=== PATIENT | female | born 1990 | race Caucasian/White ===

== ENCOUNTER 2018-02-02 18:28 | Emergency (ER) | payer OTHER ==
[~2018-02-02] VITALS: Ht 160 cm; Wt 103.4 kg
[~2018-02-02 18:28] MED LIST: AUGMENTIN 500-1 EACH PO; FAMOTIDINE20 MG PO; IRON325 M1 PO; KEFLEX500 MG PO; NAPROSYN500 MG PO; OMEPRAZOLE20 MG PO; ONDANSETRON HCL4 MG PO; ORTHO TRI-CYCL1 EACH PO; PERCOCET 5-3251 EACH PO; PRENATAL VITAM1 EACH PO; PRENATAL-FOLIC1 EACH PO; PROMETHAZINE HC25 M1 PO; PROVENTIL HFA6.7 GM INH; STOOL SOFTENER50 MG PO; VITAMIN C500 M1 PO; VITAMIN D50000 UNI1 PO; ZOFRAN ODT4 MG SL; ZOFRAN4 MG PO; ZOLOFT50 MG PO
[2018-02-02] MEDS ORDERED: COL-RITE100 MG PO (18:53)
[2018-02-02] MEDS ORDERED: RA P-COL RITE1 EACH PO (18:54)
[2018-02-02] MEDS ORDERED: TYLENOL WITH C1 EACH PO (19:00)
[2018-02-02] MEDS ORDERED: GOLYTELY SOLU4000 ML PO (19:05)
== END 2018-02-02 19:21 | disposition home or self-care (01) ==
LOC: ED 18:28
DX: K59.00 Constipation, unspecified (principal); Z90.710 Acquired absence of both cervix and uterus; Z79.899 Other long term (current) drug therapy
CPT/HCPCS: 99283

== ENCOUNTER 2020-06-23 06:30 | Day surgery (SDC) | payer OTHER ==
[~2020-06-23] VITALS: Ht 160 cm; Wt 104.3 kg
[~2020-06-23 06:30] MED LIST changes: +COL-RITE100 MG PO; +GOLYTELY SOLU4000 ML PO; +IBUPROFEN600 MG PO; +RA P-COL RITE1 EACH PO; +TYLENOL WITH C1 EACH PO
--- NOTE | 2020-06-23 07:05 | NUR ---
PT REQUESTS BREATHING TREATMENT FOR ASTHMA, STATES DR. MATA RECOMMENDED SHE ASK FOR ONE LAST NIGHT WHEN HE CALLED HER AT HOME. SARAH SPICER NOTIFIED AND STATES PT CAN TAKE OWN ALBUTEROL SHE BROUGHT WITH HER PRIOR TO SURGERY.
[2020-06-23] MEDS ORDERED: IBUPROFEN600 MG PO (08:43)
--- NOTE | 2020-06-23 08:43 | NUR ---
06/23/20 0843 Emiliana Erickson 0836- PT ARRIVES TO PACU REACTIVE TO VOICE. PT IS NOT FOLLOWING COMMANDS AND WILL CLOSE HER EYES OFF AND ON. RESP EVEN AND UNLABORED. OXYGEN SAT HIGH 90'S TO 100% ON 10L VIA MASK. 0837- OXYGEN TITRATED DOWN TO 6L VIA MASK. 0842- PT TRYING TO SIT UP. HOB ELEVATED. PT EDUCATED WHERE SHE WAS AND SURGERY WAS ALL OVER. PT RELAXES HER HEAD BACK INTO THE PILLOW.
[2020-06-23] MEDS ORDERED: ACETAMINOPHEN500 MG PO (08:44)
[2020-06-23] MEDS ORDERED: HYDROCODON-ACE1 EA10 PO (08:44)
--- NOTE | 2020-06-23 09:31 | NUR ---
PT ARRIVES TO DS RM 5 FROM PACU AWAKE AND ALERT. PT RATES PAIN 2/10 AND TOLERABLE. PT DENIES ANY NAUSEA AND IS SIPPING WATER WITH NO PROBLEMS. PT PROVIDED CRACKERS AND JELLO, STATES BEING HUNGRY. PT WOULD LIKE TO USE RESTROOM, DENIES ANY DIZZINESS OR VISION DISTURBANCES. PT UP TO BATHROOM WITH RN ASSIST, STEADY GAIT. PT VOIDS 400 MLS DILUTE YELLOW URINE AND BACK TO BED. MOTHER AT BEDSIDE, DC CRITERIA EXPLAINED. CALL LIGHT WITHIN REACH.
--- NOTE | 2020-06-23 10:07 | NUR ---
PATIENT IS UP TO THE BATHROOM. SHE AMBULATES WELL AFTER REPORTING SHE HAS BEEN UP TO THE BATHROOM TWO TIMES PRIOR. PATIENT VOIDS, IS BACK IN BED, SCDS ARE IN PLACE. CALL LIGHT IS WITHIN REACH. CRACKERS, JELLO AND GRANOLA BAR ARE EATEN. PATIENT DENIES ADDITIONAL NEEDS AT THIS TIME.
--- NOTE | 2020-06-23 10:48 | NUR ---
DC INSTRUCTIONS GIVEN TO PT, ALL QUESTIONS ADDRESSED. PAIN PRESCRIPTION IN DC PACKET. PT DC VIA WC TO MOTHER'S VEHICLE AT MAIN HOSPITAL ENTRANCE TO HOME.
--- NOTE | 2020-06-23 13:17 | NUR ---
PT ALERT, ORIENTED AND SUPPORTED BY HER PARENTS. PT IS RELAXED, ALL QUESTIONS ASKED, ANSWERED. PT REQUESTED PRAYER, DEVOPS ENGINEER IN, GAVE BLESSING WILL FOLLOW
--- NOTE | 2020-06-23 17:32 | OR ---
[facility] [address] [place], [place] [address] Signed DATE OF OPERATION: 06/23/2020 SURGEON: Dannielle Mata MD PREOPERATIVE DIAGNOSES: 1. Incarcerated incisional hernia at umbilicus. 2. Morbid obesity (BMI 40.7). POSTOPERATIVE DIAGNOSES: 1. Incarcerated incisional hernia at umbilicus. 2. Morbid obesity (BMI 40.7) (incarcerated properitoneal fat, hernia defect 1.5-2 cm). PROCEDURE: Repair of incarcerated incisional hernia with primary closure without implantation of mesh. ANESTHESIA: General endotracheal; Dannielle Rosales CRNA. INDICATIONS: This morbidly obese white woman (BMI of 40.7, has had pain at the umbilicus and referred by Gayle Franco for evaluation of what is found to be a nonreducible hernia at the umbilicus. She underwent laparoscopic hysterectomy in 2008 and incision is noted in the area. Thus, the hernia is an incisional hernia. Clinical examination shows a deep tender not consistent with incarcerated incisional hernia at the umbilicus. This is nonreducible. CT scan confirms this finding. She is admitted at this time to undergo repair of the hernia. She understands the risks of bleeding, infection, recurrence and so on. FINDINGS: She has a thick abdominal wall pannus. The defect was related to infraumbilical incision from laparoscopic hysterectomy. The defect was approximately 2 cm in size. Implantation of mesh was deemed inadvisable. The fascia was barbour. The hernia sac and incarcerated properitoneal fat were excised and a primary closure of the fascia was undertaken with interrupted 0 Prolene suture with a mattress suture technique with good effect. DESCRIPTION OF PROCEDURE: The patient was brought to the operating room and given a general endotracheal anesthetic. Preoperative antibiotics were given (Ancef) and preoperative albuterol Electronically Signed By: DANNIELLE MATA MD 06/23/20 1732 PATIENT NAME: JAMAL ZAMUDIO OPERATIVE REPORT DATE OF : 88 REPORT #: [id number] PHYSICIAN: DANNIELLE MATA MD PCP: GAYLE FRANCO PAC REPORT IS CONFIDENTIAL AND NOT TO BE RELEASED WITHOUT AUTHORIZATION [facility] [address] [place], [place] [address] Signed nebulizer given as well. The abdomen was prepared with a chlorhexidine solution and draped sterilely. A curvilinear incision was made to the left of the umbilical fold. Dissection was carried through the thick abdominal wall pannus with blunt dissection. Nonreducible herniated properitoneal fat was noted. The dermis of the umbilicus was freed and the protruding hernia fat and hernia sac was excised. The defect was somewhat larger than the tip of my finger, but not enlarged by any means. There was no other associated defect in the area. The most advisable repair was that of primary closure rather than implantation of mesh based on its size and so on. The fascial edges were barbour. Interrupted horizontal mattress sutures of 0 Prolene were placed allowing for complete closure of the defect. A 10 mL of 0.25% Marcaine with epinephrine injected locally. The skin was closed with a running subcuticular 3-0 Vicryl. Steri-Strips were applied as was a silver sponge dressing. The patient tolerated the procedure well. BLOOD LOSS: Minimal. COMPLICATIONS: None. MD DAVID Dow/MODL /[id number] cc: Gayle Franco Copies: ~ Electronically Signed By: DANNIELLE MATA MD 06/23/20 1732 PATIENT NAME: JAMAL ZAMUDIO OPERATIVE REPORT DATE OF : [birth year] REPORT #: [id number] PHYSICIAN: DANNIELLE MATA MD PCP: GAYLE FRANCO PAC REPORT IS CONFIDENTIAL AND NOT TO BE RELEASED WITHOUT AUTHORIZATION
--- NOTE | 2020-06-24 15:15 | PATH ---
[facility] [address] [place], [place] [address] Signed SPECIMEN(S): A HERNIA SAC SPECIMEN SOURCE: A. HERNIA SAC CLINICAL HISTORY: Irreducible incisional hernia. FINAL PATHOLOGIC DIAGNOSIS: Hernia sac, herniorrhaphy: - Fibromembranous tissue with dense fibrosis and adherent fibroadipose tissue, consistent with hernia sac. - No evidence of malignancy. NAL:em:C2NR MICROSCOPIC EXAMINATION: Histologic sections of all submitted blocks are examined by light microscopy. These findings, together with the gross examination, support the pathologic diagnosis. GROSS DESCRIPTION: The specimen, labeled "JG, hernia sac," is received in formalin and consists of one piece of irregular shaped, pink-lao, fibromembranous tissue that measures 2.5 x 0.6 x 0.4 cm. Sectioning through the specimen is grossly unremarkable. Specimen is entirely submitted in cassette (A1). JS (under the direct supervision of a pathologist) The Gross Description was prepared using a voice recognition system. The report was reviewed for accuracy; however, sound-alike word errors, addition and/or deletions may occur. If there is any question about this report, please contact Client Services. PERFORMING LABORATORY: The technical component was performed by [facility], [address] [place] [id number] (Shine Worker: Leeanne Rodriguez MD; CLIA# [id number]). Professional interpretation was performed by [facility], [address] [address] (CLIA# [id number]). Diagnostician: Kaitlin Guerrero MD Pathologist PATIENT NAME: JAMAL ZAMUDIO PATHOLOGY DATE OF : [birth year] REPORT #: [id number] PHYSICIAN: [facility] PCP: GAYLE FRANCO PAC REPORT IS CONFIDENTIAL AND NOT TO BE RELEASED WITHOUT AUTHORIZATION [address] [place], [place] [address] Signed Electronically Signed 06/24/2020 Copies: ~ PATIENT NAME: JAMAL ZAMUDIO PATHOLOGY DATE OF : [birth year] REPORT #: [id number] PHYSICIAN: [facility] PCP: GAYLE FRANCO PAC REPORT IS CONFIDENTIAL AND NOT TO BE RELEASED WITHOUT AUTHORIZATION
== END 2020-06-23 10:50 | disposition home or self-care (01) ==
LOC: DS 06:30
PROVIDERS: ATTEND Surgery
PROC: 0WUF0JZ Supplement Abdominal Wall with Synthetic Substitute, Open Approach (ICD-10-PCS; principal; 2020-06-23 06:45)
DX: K43.0 Incisional hernia with obstruction, without gangrene (principal); J45.909 Unspecified asthma, uncomplicated; K21.9 Gastro-esophageal reflux disease without esophagitis; E66.01 Morbid (severe) obesity due to excess calories; Z68.41 Body mass index [BMI] 40.0-44.9, adult; Z90.710 Acquired absence of both cervix and uterus; Z79.899 Other long term (current) drug therapy
CPT/HCPCS: 00832; J0690; J1100; J1644; J1885; J2250; J2405; J2704; J2765; J3010; J7121